=== PATIENT | male | born 1985 | race African-American/Black ===

== ENCOUNTER 2016-10-22 14:39 | Emergency (ER) | payer OTHER ==
[~2016-10-22] VITALS: Ht 177.8 cm; Wt 143.3 kg
--- NOTE | 2016-10-22 14:54 | EKG ---
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
[2016-10-22] MEDS ORDERED: ONDANSETRON PF 4 MG/2 ML VIAL. ONE (15:07)
[2016-10-22] MEDS ORDERED: ATROPINE SULFATE 1 MG VIAL ONE (15:12)
[2016-10-22] MEDS ORDERED: ASPIRIN 81 MG TAB.CHEW ONE (15:13)
[2016-10-22] MEDS ORDERED: IV NORMAL SALINE 1,000ML 1,000 ML IV SCH (15:15)
--- NOTE | 2016-10-22 15:16 | EKG ---
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
[2016-10-22 15:22] LABS: BASO # 0.1 x10^3/uL (0.0-0.2); BASO % 1 % (0-3); EOS # 0.1 x10^3/uL (0.0-0.7); EOS % 2 % (0-3); HEMATOCRIT 43.8 % (39.0-53.0); HEMOGLOBIN 14.2 g/dL (13.0-17.5); LYMPH # 2.4 x10^3/uL (1.0-4.8); LYMPH % 34 % (24-48); MEAN CORPUSCULAR HEMOGLOBIN 27 pg (25-35); MEAN CORPUSCULAR HGB CONC 32 g/dL (31-37); MEAN CORPUSCULAR VOLUME 83 fL (79-100); MONO # 0.7 x10^3/uL (0.0-1.1); MONO % 10 % (0-9); NEUT # 3.9 x10^3uL (1.8-7.7); NEUT % 54 % (31-73); PLATELET COUNT 192 x10^3/uL (140-400); RED BLOOD COUNT 5.32 x10^6/uL (4.30-5.70); RED CELL DISTRIBUTION WIDTH 15.6 % (11.5-14.5); WHITE BLOOD COUNT 7.3 x10^3/uL (4.0-11.0)
[2016-10-22] MEDS ORDERED: ATROPINE SULFATE IV ONE (15:30)
[2016-10-22] MEDS ORDERED: ASPIRIN 81 MG TAB.CHEW PO ONE (15:30)
--- NOTE | 2016-10-22 15:30 | PHYS DOC ---
Past History Past Medical History: No Pertinent History Past Surgical History: No Surgical History Alcohol Use: None Drug Use: None Adult General Chief Complaint Chief Complaint: NAUSEA/VOMITING/DIARRHEA HPI HPI 31-year-old male presenting to the emergency department today with epigastric abdominal pain and tightness with nausea vomiting and chills. He woke up proximally 30 minutes ago when his symptoms started. He has noticed sweatiness of the skin with nausea. He describes the pain in his abdomen is a cramping tight sensation that is nonradiating and associated with nausea with sweatiness of the skin. Review of systems is negative for fevers chills. Negative for chest pain shortness of breath. Positive for nausea and vomiting. All other review of systems is negative unless otherwise noted in history of present illness. Review of Systems Review of Systems SEE ABOVE. Current Medications Current Medications Current Medications Medications (Trade) Dose Ordered Sig/Jeffrey Start Time Stop Time Status Last Admin Dose Admin Aspirin (Children'S Aspirin) 81 mg STK-MED ONCE 10/22/16 15:13 10/22/16 15:14 DC Atropine Sulfate 1 mg STK-MED ONCE 10/22/16 15:12 10/22/16 15:13 DC Ondansetron HCl (Zofran) 4 mg STK-MED ONCE 10/22/16 15:07 10/22/16 15:08 DC Sodium Chloride (Iv Sodium Chloride 0.9% 1,000ml) 1,000 ml @ 1,000 mls/hr Q1H 10/22/16 15:15 10/22/16 16:14 10/22/16 15:06 1,000 MLS/HR Allergies Allergies Allergies Coded Allergies Type Severity Reaction Last Updated Verified No Known Drug Allergies 10/22/16 No Physical Exam Physical Exam Constitutional: Well developed, well nourished, pt is in mild amount of pain. non-toxic appearance. [] HENT: Normocephalic, atraumatic, bilateral external ears normal, oropharynx moist, no oral exudates, nose normal. [] Eyes: PERRLA, EOMI, conjunctiva normal, no discharge. [] Neck: Normal range of motion, no tenderness, supple, no stridor. Cardiovascular:Heart rate regular rhythm, no murmur Lungs & Thorax: Bilateral breath sounds clear to auscultation . No wheezes or crackles present Abdomen: Bowel sounds normal, soft, no tenderness, no masses, no pulsatile masses. [] Skin: Warm with diaphoresis, no erythema, no rash. Back: No tenderness, no CVA tenderness. [] Extremities: No tenderness, no cyanosis, no clubbing, ROM intact, no edema. [] Neurologic: Alert and oriented X 3, normal motor function, normal sensory function, no focal deficits noted. [] Psychologic: Affect normal, judgement normal, mood normal. [] Current Patient Data Vital Signs Vital Signs Date Time Temp Pulse Resp B/P Pulse Ox O2 Delivery O2 Flow Rate FiO2 10/22/16 14:47 97.9 48 18 Room Air EKG EKG EKG repeated 2. Initial EKG at 249 shows sinus rhythm with a prolonging [place] interval suggestive of a second-degree type I Wenckebach heart block. ST segments are congruent. Second EKG performed at 3:15 is without acute evolving changes of the ST segments. Radiology/Procedures Radiology/Procedures [address] [address] IMAGING REPORT Signed PATIENT: HUGO PERRY ACCOUNT: [id number] : 1985 LOCATION: ER AGE: 31 SEX: M EXAM STATUS: REG ER ORD. PHYSICIAN: ROBY DC MD REASON: abdominal pain PROCEDURE: CT ABDOMEN PELVIS WO CONTRAST CT abdomen and pelvis without contrast History: Abdominal pain, nausea, vomiting, diarrhea for one day. Bradycardia. Comparison: None. Technique: Helical CT of the abdomen and pelvis was performed without intravenous or oral contrast. Axial, sagittal, and coronal reconstructions were obtained. Patient declined repeat imaging of the areas limited by motion artifact. One or more of the following individualized dose reduction techniques were utilized for the study: Automated exposure control Adjustment of mA and/or kV according to patient's size Use of iterative reconstruction technique. Findings: Evaluation of the solid organs is limited by lack of intravenous contrast. Evaluation of enteric structures may be limited by lack of oral contrast. There is motion artifact at multiple levels which could obscure small to medium-sized abnormalities. Superior pole of the left kidney demonstrates 2 mm nonobstructive nephrolith. No other convincing urinary stone is identified. Both ureters are suboptimally visualized and evaluated secondary to motion, but no convincing ureteral stone or ureteral obstruction is identified. Liver, spleen, pancreas, gallbladder, and bilateral adrenal glands are unremarkable. There is no evidence of bowel obstruction. No free air or free fluid is identified in the abdomen or pelvis. Appendix appears within normal limits. Urinary bladder is unremarkable. Mild-moderate subcutaneous body wall edema is seen. Impression: 1. Limited examination as described above. 2. No acute abnormality identified. 3. Nonobstructive left nephrolith. 4. Body wall edema. DICTATED AND SIGNED BY: YESI BERG MD DATE: 10/22/16 2608 CC: ROBY DC MD; PCP,NO ~ [] Course & Med Decision Making Course & Med Decision Making Pertinent Labs and Imaging studies reviewed. (See chart for details) [] 31-year-old male presenting to the emergency department with bradycardia and nausea vomiting abdominal pain. Initial EKG concerning for type I Wenckebach secondary heart block. The patient was symptomatically bradycardic and thus was given 0.5 mg of atropine IV which improved his heart rate and symptoms. CT of the abdomen pelvis was obtained. Blood work obtained including troponin. I discussed the case with our cornice upholsterer team's [facility] November. He stated he would relay the information to the cornice upholsterer's. The patient was then transferred to [facility] to be admitted directly to Dr. koenig] to the cardiovascular care unit for further evaluation workup and care. The patient was transferred by ambulance. The patient's heart rate was in the 80s after atropine and he was feeling symptomatically improved. Dragon Disclaimer Dragon Disclaimer This chart was dictated in whole or in part using Voice Recognition software in a busy, high-work load, and often noisy Emergency Department environment. It may contain unintended and wholly unrecognized errors or omissions. Departure Departure: Impression: Primary Impression: Heart block AV second degree Additional Impressions: Wenckebach's phenomenon, heart block Symptomatic bradycardia Nausea and vomiting Epigastric abdominal pain Disposition: XF [facility] HOSP Admitting Physician: Other (cyndi) Condition: STABLE Referrals: PCP,NO (PCP) Problem Qualifiers ROBY DC MD Oct 22, 2016 15:30
[2016-10-22 15:33] LABS: ALBUMIN 3.8 g/dL (3.4-5.0); CALCIUM 8.9 mg/dL (8.5-10.1); DIRECT BILIRUBIN 0.2 mg/dL (0.0-0.2); GFR 104.1; POTASSIUM 3.7 mmol/L (3.5-5.1); TOTAL BILIRUBIN 0.5 mg/dL (0.2-1.0); TOTAL PROTEIN 7.3 g/dL (6.4-8.2)
--- NOTE | 2016-10-22 16:00 | RAD ---
CT abdomen and pelvis without contrast History: Abdominal pain, nausea, vomiting, diarrhea for one day. Bradycardia. Comparison: None. Technique: Helical CT of the abdomen and pelvis was performed without intravenous or oral contrast. Axial, sagittal, and coronal reconstructions were obtained. Patient declined repeat imaging of the areas limited by motion artifact. One or more of the following individualized dose reduction techniques were utilized for the study: Automated exposure control Adjustment of mA and/or kV according to patient's size Use of iterative reconstruction technique. Findings: Evaluation of the solid organs is limited by lack of intravenous contrast. Evaluation of enteric structures may be limited by lack of oral contrast. There is motion artifact at multiple levels which could obscure small to medium-sized abnormalities. Superior pole of the left kidney demonstrates 2 mm nonobstructive nephrolith. No other convincing urinary stone is identified. Both ureters are suboptimally visualized and evaluated secondary to motion, but no convincing ureteral stone or ureteral obstruction is identified. Liver, spleen, pancreas, gallbladder, and bilateral adrenal glands are unremarkable. There is no evidence of bowel obstruction. No free air or free fluid is identified in the abdomen or pelvis. Appendix appears within normal limits. Urinary bladder is unremarkable. Mild-moderate subcutaneous body wall edema is seen. Impression: 1. Limited examination as described above. 2. No acute abnormality identified. 3. Nonobstructive left nephrolith. 4. Body wall edema.
[2016-10-22 16:29] LABS: BILIRUBIN,URINE NEG (NEG); CLARITY,URINE CLOUDY; COLOR,URINE YELLOW; GLUCOSE,URINE NEG (NEG); NITRITE,URINE NEG (NEG); UROBILINOGEN,URINE 0.2 mg/dL (0.2 mg/dL)
[2016-10-22 16:30] LABS: BACTERIA,URINE 0 /HPF (0-FEW); RBC,URINE 0 /HPF (0-2); SQUAMOUS EPITHELIAL CELL,UR FEW /LPF
[2016-10-22] MEDS ORDERED: hydrALAZINE 20 MG/ML VIAL. IV ONE (16:40)
[2016-10-22 17:49] VITALS: BP 186/95
== END 2016-10-22 17:29 | disposition short-term general hospital (02) ==
LOC: ER 14:39
DX: I44.1 Atrioventricular block, second degree (principal); R10.13 Epigastric pain; R11.2 Nausea with vomiting, unspecified; R00.1 Bradycardia, unspecified
CPT/HCPCS: 36415; 74176; 80048; 80076; 81001; 83690; 84484; 85027; 87086; 93005; 96361; 96374; 96375; 99285; J0360; J0461; J7030